=== PATIENT | male | born 1965 | race Caucasian/White ===

== ENCOUNTER 2017-10-27 10:26 | Day surgery (SDC) | payer BC ==
[2017-10-27] MEDS ORDERED: VANCOMYCIN/NS 1 gm 1 GM/250 ML BAG ONE (10:59)
== END 2017-10-27 12:30 | disposition home or self-care (01) ==
LOC: DS 10:26
PROVIDERS: ATTEND Urology
DX: N39.0 Urinary tract infection, site not specified (principal); R97.20 Elevated prostate specific antigen [PSA]
CPT/HCPCS: 96365; 96366; J3370

== ENCOUNTER 2021-01-23 05:48 | Day surgery (SDC) | payer BC ==
[2021-01-19 10:05] LABS: Absolute Lymphocytes (CBC) 1.8 K/uL (0.7-4.9); Basophils % 0.4 % (0-1.3); Hematocrit 43.3 % (39.6-49.0); Lymphocytes % 18.4 % (15.3-44.8); MPV 7.6 fL (7.6-11.3); RBC Red Blood Cell Count 4.68 M/uL (4.33-5.43)
[2021-01-19 10:13] LABS: BUN Blood Urea Nitrogen 23 mg/dL (7-18); Bicarbonate 29 mmol/L (21-32); Glucose Level 112 mg/dL (74-106); Potassium 4.1 mmol/L (3.5-5.1); Protime INR 1.04; Sodium Level 141 mmol/L (136-145)
--- NOTE | 2021-01-19 10:30 | RAD REPORT ---
EXAM DESCRIPTION: RAD - Chest Pa And Lat (2 Views) - 01/19/2021 10:08 am CLINICAL HISTORY: preop Chest pain. COMPARISON: No comparisons FINDINGS: The lungs are clear. The heart is normal in size. No displaced fractures. IMPRESSION: No acute or concerning finding suspected.
[2021-01-23] MEDS ORDERED: Ringers Lactate 1,000 ML IV ONE ×2 (06:23→08:49)
[2021-01-23] MEDS ORDERED: CEFAZOLIN/SWI 2gm 2 GM/20 ML SYR ONE (06:23)
[2021-01-23] MEDS ORDERED: propofoL 200 MG/20 ML VIAL IV ONE ×2 (06:29→08:38)
[2021-01-23] MEDS ORDERED: MIDAZOLAM HCL 2 MG/2 ML INJ ONE ×2 (06:29→08:38)
[2021-01-23] MEDS ORDERED: FENTANYL CITR 100 MCG/2 ML ONE ×2 (06:29→08:38)
[2021-01-23] MEDS ORDERED: ONDANSETRON 4 MG/2 ML VIAL ONE ×2 (06:30→08:38)
[2021-01-23] MEDS ORDERED: ROCURONIUM 50 MG/5 ML VIAL IV ONE ×2 (06:30→08:38)
[2021-01-23] MEDS ORDERED: dexAMETHasone 10 MG/ML VIAL ONE ×2 (06:30→08:38)
[2021-01-23] MEDS ORDERED: LIDOCAINE 2% MPF 5 ML VIAL ONE ×2 (06:30→08:38)
[2021-01-23] MEDS ORDERED: NS 0.9% VIAL 10 ML ONE (06:30)
[2021-01-23] MEDS ORDERED: LIDOCAINE 1% MPF 30 ML VIAL ONE ×2 (06:31→08:38)
[2021-01-23] MEDS ORDERED: ROPLVACAINE HCL 40 ML ONE (06:38)
[2021-01-23] MEDS ORDERED: CELECOXIB 100 MG CAPSULE ONE (07:08)
[2021-01-23] MEDS ORDERED: ACETAMINOPHEN 500 MG TAB ONE (07:08)
[2021-01-23] MEDS ORDERED: EPINEPHRINE/PF 1 MG/ML AMP ONE (07:14)
[2021-01-23] MEDS ORDERED: NS 0.9% VIAL 0 ML ONE (08:38)
[2021-01-23] MEDS ORDERED: EPHEDRINE SULF 50 MG/ML VIAL ONE (08:38)
--- NOTE | 2021-01-23 09:41 | P.BOP ---
Preoperative diagnosis: left rotator cuff tear, bicipital tenosynovitis, impingement syndrome Postoperative diagnosis: same Primary procedure: left shoulder arthroscopic rotator cuff repair Secondary procedure: left shoulder arthroscopic biceps tenotomy Other procedure(s): left shoulder arthroscopic subacromial decompression Estimated blood loss: 5 cc Specimen: none Findings: see dictation Anesthesia: General Complications: None Implants: 1- 5.5 mm arthrex corkscrew, 1 - 4.75 mm arthrex swivelock Fluids & blood products: per anesthesia record Transferred to: Recovery Room Condition: Good
--- NOTE | 2021-01-23 10:45 | RAD REPORT ---
EXAM DESCRIPTION: RAD - Shoulder 1 View - 01/23/2021 10:28 am CLINICAL HISTORY: rotator cuff repair COMPARISON: Shoulder Left Wo Cont dated 12/04/2020 FINDINGS: Postsurgical changes are present about the left shoulder. Mild soft tissue swelling is sof t tissue air is present. No unexpected postoperative finding.
[2021-01-23] MEDS ORDERED: HYDROCODONE/APAP 7.5/325 MG TAB ONE (11:25)
[2021-01-23 12:42] VITALS: BP 113/65; TEMP 97.3; O2SAT 94
--- NOTE | 2021-01-27 21:04 | OP ---
Date of Procedure: 01/23/2021 Surgeon: Blas Brown MD Postoperative Diagnoses: 1.Left shoulder rotator cuff tear. 2.Left shoulder bicipital tenosynovitis. 3.Left shoulder impingement syndrome. Postoperative Diagnoses: 1.Left shoulder rotator cuff tear. 2.Left shoulder bicipital tenosynovitis. 3.Left shoulder impingement syndrome. Procedures Performed: 1.Left shoulder arthroscopic rotator cuff repair. 2.Left shoulder arthroscopic biceps tenotomy. 3.Left shoulder arthroscopic subacromial decompression. Anesthesia: General endotracheal. Fluids: Per Anesthesia record. Estimated Blood Loss: 5 cc. Complications: None. Implants: 1.One 5.5 mm Arthrex Corkscrew. 2.One 4.75 mm Arthrex SwiveLock. Indication For Procedure: Jsoe Luis is a 55-year-old male, who presented to my clinic with signs, sympt oms, and MRI findings consistent with left shoulder rotator cuff tear. I discussed with the patient at length risks and benefits associated with operative and nonoperative treatment. He expressed unde rstanding and elected to proceed with operative treatment. Description Of Procedure: After informed consent was obtained, the patient was identified in the pre operative holding area. The left upper extremity was marked. The patient was then taken to the PACU , where he underwent an interscalene block. The left upper extremity performed by Anesthesia. He wa s then taken to the operating room, transferred to the operating table in supine fashion and placed u nder general endotracheal anesthesia. He was then placed in the beach chair position with the extrem ities well padded. The left upper extremity was then examined. The patient had full range of motion without instability noted. Next, the left upper extremity was prepped and draped in usual sterile f ashion. A time-out was initiated. The correct patient and procedure were confirmed and identified. The patient received his preoperative prophylactic antibiotics. Attention was first taken to the cr eation of the posterior portal. A spinal needle was introduced into the left glenohumeral joint and injected with 30 cc of normal saline to distend the capsule. A stab incision was made over the poste rior portal position using 11 blade and the arthroscope was brought in via the posterior portal posit ion. Under direct visualization, an anterior portal was created and cannula was placed. Diagnostic arthroscopy was performed. The patient was noted to have significant fraying of the biceps tendon an chor. The biceps tenotomy was then performed using meniscal biters. The patient was noted to have o verall pristine cartilage of the humeral head and glenoid rim. There was no instability noted of the anterior-posterior labrum without tearing. No loose bodies are found within the axillary pouch. Th e subscapularis was found to be intact and stable to probe. The arthroscope was then brought in to e valuate the supraspinatus footprint. There was significant fraying and there was a full-thickness te ar noted. A lateral portal was created and an obturators brought into the joint, which confirm the f ull-thickness nature of the tear. The undersurface of the supraspinatus tear was then debrided using arthroscopic shaver. The arthroscope was then brought into the subacromial space and subacromial bu rsectomy was performed. The anterior supraspinatus tear was then identified and debrided on the burs al aspect of it. A cannula was placed through the lateral portal. A 5.5 mm double loaded corkscrew anchor was then placed just lateral to the articular surface and the sutures were then passed through the rotator cuff tear in an anterior-posterior fashion and tied in a horizontal mattress type fashio n. The sutures were all brought together using a single lateral row and there was good overall reduc tion of the tear onto the footprint. Nylon suture was then used to reinforce the repair and was brou ght through the tissue posteriorly. Next, attention was taken to the subacromial decompression as th ere was some fraying noted of the coracoacromial ligament. The undersurface of the acromion was then debrided using arthroscopic ablator, radiofrequency ablator as well as an acromioplasty was performe d using arthroscopic alison. The arthroscopic instruments were then removed without complication. Wou nds were then irrigated thoroughly with normal saline. Subcutaneous tissue was approximated using 2- 0 Vicryl and portals were approximated using 3-0 Monocryl. Sterile dressings were applied. The pankaj ent was placed in a shoulder immobilizer, awakened, and transferred to PACU in stable condition. Postoperative Plan: He will be nonweightbearing on his left upper extremity and will begin physical therapy per medium rotator cuff repair protocol at 3 weeks postop. ABRAHAM/MODL Voice ID: [id number] Report ID: [id number]
== END 2021-01-23 11:55 | disposition home or self-care (01) ==
LOC: OR 05:48
PROVIDERS: ATTEND Orthopaedic Surgery Sports Medicine
PROC: 0RHK44Z Insertion of Internal Fixation Device into Left Shoulder Joint, Percutaneous Endoscopic Approach (ICD-10-PCS; 2021-01-23)
PROC: 0RNK4ZZ Release Left Shoulder Joint, Percutaneous Endoscopic Approach (ICD-10-PCS; 2021-01-23)
PROC: 0LQ24ZZ Repair Left Shoulder Tendon, Percutaneous Endoscopic Approach (ICD-10-PCS; principal; 2021-01-23 07:30)
DX: M75.102 Unspecified rotator cuff tear or rupture of left shoulder, not specified as traumatic (principal); M75.22 Bicipital tendinitis, left shoulder; M75.42 Impingement syndrome of left shoulder; Z20.822 Contact with and (suspected) exposure to COVID-19
CPT/HCPCS: 29827; 29826; 93005; 85025; 80048; 36415; 85610; 85730; 71046; 73020; U0002; J2704; J0171; J2250; J3010; J1100; J2795; J0690; J7120 ×2; J2405

== ENCOUNTER 2021-11-01 01:40 | Emergency (ER) | payer BC ==
--- OUTSIDE RECORDS SUMMARY | 2021-11-01 01:43 | XMS REPORT | Clinical Summary ---
:1965 Author Organization [facility] MD [facility] Address [address] [place] [address] Care Team Providers Name Role Phone MD Anthony Primary Care Provider Isaias Andrews MD Unavailable Allergies No known active allergies Medications No known medications Active Problems Problem Noted Date Adenocarcinoma of prostate 11/28/2017 Cancer Staging: Clinical stage from 10/27: Stage IIB (cT2a, cN0, cM0, PSA: 4.5, Grade Group: 2) - Signed by AYDIN Brooks on 05/22/2018 Pathologic stage from 04/05/2018: Stage I IB (pT2, pN0, cM0, PSA: 4.5, Grade Group: 2) - Signed by AYDIN Brooks on 05/22/2018 Overview: Added automatically from request for evelio gillis [id number] Surgical History Surgery Date Site/Laterality Comments CO 04/05/2018 Abdomen/N/A Procedure: ROBOT IC ASSISTED LAP,PROSTATECTOMY,RADICAL,W/NERV PROSTATECTOMY, RETROPUBIC E SPARE,INCL ROBOTIC RADICAL, IN CLUDING NERVE SPARING; Surgeo n: Mikey Cruz MD; Lo cation: MAIN OR; Servic e: UROLOGY CO LAP,PELVIC LYMPHADENECTOMY 04/05/2018 Bilateral Pr ocedure: ROBOTIC ASSISTED PELVIC LYMPHADEN ECTOMY; Surgeon: Mikey meade MD; Location: MAIN OR; Service: UROLOGY Medical History Medical History Date Comments Prostate cancer Dependence on continuous positive airway pressure ventilatio n Obstructive sleep apnea uses CPAP Family History Medical History Relation Name Comments Diabetes Brother -Genitourinary (Bladder, Kidney, Prostate, Father prostate Testicle) Diabetes Father -Gastrointestinal (Esophagus, Liver, Bile Duct, Maternal Grandmo ther pancreatic Stomach, Pancreas, Colon, Rectum, Anus Diabetes Mother Heart disease Mother Stroke Paternal Grandfather Diabetes Sister Coronary artery disease Neg Hx Relation Name Status Comments Brother Father Maternal Grandmother Mother Paternal Grandfather Sister Social History Tobacco Use Types Packs/Day Years Used Date Never Smoker Smokeless Tobacco: Never Used Alcohol Use Standard Drinks/Week Comments No 0 (1 standard drink = 0.6 oz pure alcoho l) Sex Assigned at Date Recorded Not on file Job Start Date Occupation Industry Not on file Not on file Not on file Obstetrics History Last Filed Vital Signs Not on file Plan of Treatment Health Maintenance Due Date Last Done Comments COVID-19 Vaccination (1) 02/12/1968 Results Not on fileafter 11/01/2020 Insurance Payer Benefit Plan / Subscriber ID Effective Dates Phone Addre ss Type Group [place] POS [id number] 2018-Present [address] [place] [address] Advance Directives Code Status Date Activated Date Inactivated Comments Full Code 04/05/2018 3:37 PM 04/06/2018 8:37 PM Full Code 04/05/2018 11:32 AM 04/05/2018 3:37 PM Care Teams Rolled [employer] 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
--- OUTSIDE RECORDS SUMMARY | 2021-11-01 01:44 | XMS REPORT | Continuity of Care Document ---
:1965 Author Organization [facility] t Address [address] [place] [address] Care Team Providers Name Role Phone PISTERS Primary Care Physician Unavailable Agus BEY Attending Clinician AGUS Attending Clinician Unavailable Doctor Unassigned, Name Attending Clinician Unavailable Provider, Db Urgent [facility] Attending Clinician Unavailable PISTERS Attending Clinician Unavailable Payers Payer Name Policy Type Policy Number Effective Date Expiration Date S ource [place] POS [id number] 2018 00:00:00 Problems Condition Condition Condition Status Onset Resolution Last Treating Co mments Source Name Details Category Date Date Treatment Clinician Date Adenocarci Adenocarci Disease Active Overview : noma of noma of 23 Jonh Vasquez so prostate prostate 00:00: g of this n 00 note might be different from the original. Added automatic ally from request for surgery [id number] No known No known Disease Unive rs active active ity of problems problems [facility] Allergies, Adverse Reactions, Alerts Allergy Allergy Status Severity Reaction(s) Onset Inactive Treating Comm ents Source Name Type Date Date Clinician NO KNOWN Drug Active Univers ALLERGIE Class ity of S [facility] Family History Family Member Diagnosis Comments Start Date Stop Date Source Natural sister Diabetes MD Ozzy albert Family member Coronary artery And timothy disease Natural brother Diabetes MD Jain on Natural father -Genitourinary (Bladder, Kidney, Prostate, Testicle) Natural father Diabetes MD Ozzy albert Maternal grandmother -Gastrointestinal MD Mcallister (Esophagus, Liver, Bile Duct, Stomach, Pancreas, Colon, Rectum, Anus Natural mother Diabetes MD Ozzy albert Natural mother Heart disease MD Everardo black Paternal grandfather Stroke MD Zak regan Social History Social Habit Start Date Stop Date Quantity Comments Source Exposure to Not sure University of SARS-CoV-2 [facility] (event) Branch Alcohol intake 2019-08-21 2019-08-21 Current MD Ozzy albert 00:00:00 00:00:00 non-drinker of alcohol (finding) Tobacco use and 2017-11-28 2017-11-28 Smokeless tobacco MD Mcallisetr exposure 00:00:00 00:00:00 non-user Sex Ass[birth year] At [birth year] MD Jain on 00:00:00 00:00:00 Smoking Status Start Date Stop Date Source [facility] Never smoked tobacco MD Mcallister Medications Ordered Filled Start Stop Current Ordering Indication Dosage Frequency Signature Comments Components Source Medication Medication Date Date Medication? Clinician (SIG) Name Name [facility] Yes by [employer] s E IM 1-08 Intramuscu ity of 15:38: lar route. [address] TESTOSTERON Yes by Univer s E IM 1-08 Intramuscu ity of 15:38: lar route. [address] TESTOSTERON Yes by Univer s E IM 1-08 Intramuscu ity of 15:38: lar route. [address] benzonatate Yes [id number] 200mg Take 2 Univers 100 mg 1-08 capsules ity of capsule 00:00: by mouth [place] [id number] every 8 Medical (eight) Branch hours as needed for Cough. benzonatate Yes [id number] 200mg Take 2 Univers 100 mg 1-08 capsules ity of capsule 00:00: by mouth [place] [address] every 8 Medical (eight) Branch hours as needed for Cough. benzonatate Yes [id number] 200mg Take 2 Univers 100 mg 1-08 capsules ity of capsule 00:00: by mouth [place] [address] every 8 Medical (eight) Branch hours as needed for Cough. amoxicillin Yes [id number] 1{tbl} Take 1 Univers -clavulanat 1-08 tablet by ity of e 00:00: mouth 2 [place] (AUGMENTIN) 00 (two) Medical 875-125 mg times Branch per tablet daily. amoxicillin 2021- Yes [id number] 1{tbl} Take 1 Univers -clavulanat 08-15 tablet by it y of e 00:00: 05:59 mouth 2 [place] (AUGMENTIN) 00 :00 (two) Medical 875-125 mg times Branch per tablet daily for 7 days. amoxicillin 2021- Yes [id number] 1{tbl} Take 1 Univers -clavulanat 08-15 tablet by it y of e 00:00: 05:59 mouth 2 [place] (AUGMENTIN) 00 :00 (two) Medical 875-125 mg times Branch per tablet daily for 7 days. benzonatate 2021- No [id number] 200mg Take 2 Univers 100 mg 08-15 capsules ity of capsule 00:00: 00:00 by mouth [place] 00 :00 every 8 Medical (eight) Branch hours as needed for Cough. amoxicillin 2021- No [id number] 1{tbl} Take 1 Univers -clavulanat 08-15 tablet by it y of e 00:00: 00:00 mouth 2 [place] (AUGMENTIN) 00 :00 (two) Medical 875-125 mg times Branch per tablet daily for 7 days. Vital Signs Vital Name Observation Time Observation Value Comments Source Systolic blood 2021-08-15 21:37:00 134 mm[Hg] Univer [facility] Diastolic blood 2021-08-15 21:37:00 81 mm[Hg] Unive [facility] Heart rate 2021-08-15 21:37:00 65 /min [facility] Body temperature 2021-08-15 21:37:00 36.67 Danelle [facility] Respiratory rate 2021-08-15 21:37:00 16 /min [facility] Body height 2021-08-15 21:37:00 160 cm [facility] Body weight 2021-08-15 21:37:00 86.637 kg [facility] BMI 2021-08-15 21:37:00 33.83 kg/m2 [facility] Oxygen saturation in 2021-08-15 21:37:00 98 /min University of Arterial blood by [facility] Pulse oximetry Branch Procedures Procedure Date / Time Performed Performing Clinician [facility] e CONSENT/REFUSAL FOR 2021-08-15 21:32:13 [facility] Plan of Care Planned Activity Planned Date Details Comments Source Future Scheduled Test 1968-02-12 00:00:00 COVID-19 Vaccination MD Mcallister (1) [code = COVID-19 Vaccination (1)] Encounters Start End Encounter Admission Attending Care Care Encounter Source Date/Time Date/Time Type Type Clinicians Facility Department ID 2021-08-15 2021-08-15 [facility] [id number] Univers 15:40:00 16:03:42 Care Adán HEALTH [id number] it y of [place] [id number] Sundar as HAKAN?BLEA [id number] [address] MEDICAL OFFICE [facility] 2021-08-15 2021-08-15 Outpatient R AGUS [facility] [id number] Univers 15:40:00 16:03:[address] [facility] 2021-08-15 2021-08-15 Orders Doctor CHUCK [id number] Univers 00:00:00 00:00:00 Only Unassigned, JESSIE [id number] ity of [place] [facility] [id number] Sundar as [id number] [place] [address] Branch 2021-08-15 2021-08-15 [facility] [id number] Univers 00:00:00 00:00:00 (Out) Ang Db HEALTH [id number] it y of Urgent Care [place] [id number] [place] HAKAN?BLEA [id number] [address] OFFICE [facility] 2021-08-15 2021-08-15 Telephone Agus [facility] [id number] Univers 00:00:00 00:00:00 Adán HEALTH [id number] it y of [place] [id number] Sundar as HAKAN?BLEA [id number] [address] OFFICE [facility] 2020-09-15 2020-09-15 Outpatient JM MARTINEZ MDA MDA [id number] 11:43:03 11:43:03 ERIC albert 2020-09-08 2020-09-08 Outpatient JM MARTINEZ MDA MDA [id number] 11:24:12 11:38:57 ERIC albert Results This patient has no known results.
[2021-11-01] MEDS ORDERED: IBUPROFEN 400 MG TAB ONE ×2 (02:48→02:50)
--- NOTE | 2021-11-01 04:20 | EDPHYS ---
Physician Documentation [facility] Name: Jose Luis Baird Age: 56 yrs Sex: Male : 1965 Arrival Date: 11/01/2021 Time: 01:44 Bed 6 Private MD: ED Physician Ollie Lua HPI: 11/01 02:16 This 56 yrs old Male presents to ER via Ambulatory with complaints of Hip Pain. mh7 02:16 The patient or guardian reports pain. that occurred at an unknown site, sustained from mh7 unknown reason, There is no obvious deformity, The patient is able to self ambulate. The patient is able to bear their full body weight. There is no radiation of the patient's discomfort. The patient was discovered weeksafter the incident. The complaints affect the bilateral hips. Onset: The symptoms/episode began/occurred 4 week(s) ago. 02:16 Modifying factors: The symptoms are alleviated by nothing, the symptoms are aggravated mh7 by weight bearing. 02:16 Associated signs and symptoms: Pertinent negatives: abdominal pain, altered mental mh7 status, anorexia, chest pain, diarrhea, dizziness, dysuria, fever, headache, incontinence, nausea, shortness of breath, vomiting, weakness. Severity of symptoms: At their worst the symptoms were moderate, 14 day(s) ago, in the emergency department the symptoms are unchanged. The patient has experienced similar episodes in the past, multiple times. Historical: - Allergies: 02:00 No Known Allergies; lonnie - Home Meds: 02:00 testosterone shot [Active]; lonnie - PSHx: 02:00 rotator cuff x 2; prostatectomy; lonnie - Immunization history:: Adult Immunizations up to date, Client reports receiving the 2nd dose of the Covid vaccine. - Social history:: Smoking status: Patient denies any tobacco usage or history of. ROS: 02:16 Constitutional: Negative for fever, chills, and weight loss, Eyes: Negative for injury, mh7 pain, redness, and discharge, ENT: Negative for injury, pain, and discharge, Neck: Negative for injury, pain, and swelling, Cardiovascular: Negative for chest pain, palpitations, and edema, Respiratory: Negative for shortness of breath, cough, wheezing, and pleuritic chest pain, Abdomen/GI: Negative for abdominal pain, nausea, vomiting, diarrhea, and constipation, Back: Negative for injury and pain, : Negative for injury, bleeding, discharge, and swelling, Skin: Negative for injury, rash, and discoloration, Neuro: Negative for headache, weakness, numbness, tingling, and seizure, Psych: Negative for depression, anxiety, suicide ideation, homicidal ideation, and hallucinations, Allergy/Immunology: Negative for hives, rash, and allergies, Endocrine: Negative for neck swelling, polydipsia, polyuria, polyphagia, and marked weight changes, Hematologic/Lymphatic: Negative for swollen nodes, abnormal bleeding, and unusual bruising. Exam: 02:16 Constitutional: This is a well developed, well nourished patient who is awake, alert, mh7 and in no acute distress. Head/Face: Normocephalic, atraumatic. Eyes: Pupils equal round and reactive to light, extra-ocular motions intact. Lids and lashes normal. Conjunctiva and sclera are non-icteric and not injected. Cornea within normal limits. Periorbital areas with no swelling, redness, or edema. Neck: Trachea midline, no thyromegaly or masses palpated, and no cervical lymphadenopathy. Supple, full range of motion without nuchal rigidity, or vertebral point tenderness. No Meningismus. Chest/axilla: Normal chest wall appearance and motion. Nontender with no deformity. No lesions are appreciated. Cardiovascular: Regular rate and rhythm with a normal S1 and S2. No gallops, murmurs, or rubs. Normal PMI, no JVD. No pulse deficits. Respiratory: Lungs have equal breath sounds bilaterally, clear to auscultation and percussion. No rales, rhonchi or wheezes noted. No increased work of breathing, no retractions or nasal flaring. Abdomen/GI: Soft, non-tender, with normal bowel sounds. No distension or tympany. No guarding or rebound. No evidence of tenderness throughout. Back: No spinal tenderness. No costovertebral tenderness. Full range of motion. Skin: Warm, dry with normal turgor. Normal color with no rashes, no lesions, and no evidence of cellulitis. 02:16 Neuro: Awake and alert, GCS 15, oriented to person, place, time, and situation. Cranial nerves II-XII grossly intact. Motor strength 5/5 in all extremities. Sensory grossly intact. Cerebellar exam normal. Normal gait. Psych: Awake, alert, with orientation to person, place and time. Behavior, mood, and affect are within normal limits. 02:16 Musculoskeletal/extremity: Extremities: noted in the bilateral hips: tenderness, mild, ROM: intact in all extremities, Circulation is intact in all extremities. Sensation intact. Compartment Syndrome exam of affected extremity: is normal. no numbness, no tingling, no sensation deficit, no palor, no weak pulses, Joints: the left hip and right hip displays tenderness, mild, Weight bearing: able to fully bear weight, without difficulty, Tendon exam: specific tendon testing normal through active and passive range of motion DVT Exam: no pain, no swelling, no tenderness, negative Homans' sign noted on exam, no appreciated bluish discoloration, no erythema, no increased warmth, Calves: are non-tender, have equal circumference. Vital Signs: 01:58 BP 136 / 105; Pulse 71; Resp 18; Temp 98.5; Pulse Ox 99% on R/A; Weight 86.18 kg; lonnie Height 5 ft. 2 in. (157.48 cm); Pain 8/10; 03:43 BP 132 / 93; Pulse 80; Resp 18; Temp 98.5; Pulse Ox 99% on R/A; Pain 6/10; lonnie 04:34 BP 132 / 93; Pulse 63; Resp 18; Temp 98.6; Pulse Ox 100% on R/A; Pain 4/10; lonnie 01:58 Body Mass Index 34.75 (86.18 kg, 157.48 cm) lonnie MDM: 02:16 Differential diagnosis: bursitis, arthritis, strain. Data reviewed: vital signs, nurses mh7 notes. Data interpreted: Pulse oximetry: on room air is 99 %. Interpretation: normal. Counseling: I had a detailed discussion with the patient and/or guardian regarding: the historical points, exam findings, and any diagnostic results supporting the discharge/admit diagnosis, the presence of at least one elevated blood pressure reading (>120/80) during this emergency department visit, the need for outpatient follow up, a orthopedic surgeon, to return to the emergency department if symptoms worsen or persist or if there are any questions or concerns that arise at home. Response to treatment: the patient's symptoms have markedly improved after treatment. Refusal of service: The patient/guardian displays adequate decision making capability and despite a detailed discussion of alternatives, benefits, risks, and consequences refuses: CT Scan, all X-rays. ED course: Patient states that he came to get an MRI. Declined x ray or CT scan.. 04:[address] [facility] Administered Medications: 02:47 Drug: Ibuprofen 800 mg Route: PO; lonnie Disposition Summary: 11/01/21 04:19 Discharge Ordered Location: Home [facility] Problem: chronic [facility] Symptoms: have improved [facility] Condition: Stable [facility] Diagnosis - Pain in hip - Bilateral, chronic [facility] Followup: [facility] - With: Private Physician - When: 1 - 2 days - Reason: Worsening of condition, Recheck today's complaints, Continuance of care, Re-evaluation by your physician Followup: [facility] - With: Joe Hoffman MD - When: 1 - 2 days - Reason: Worsening of condition, Recheck today's complaints Discharge Instructions: - Discharge Summary Sheet [facility] - Hip Pain [facility] Forms: - Medication Reconciliation Form [facility] - Thank You Letter [facility] - Antibiotic Education [facility] - Prescription Opioid Use [facility] Prescriptions: - Ibuprofen 800 mg Oral Tablet - take 1 tablet by ORAL route every 8 hours As needed take with food; 15 tablet; [facility] Refills: 0, Product Selection Permitted - Cyclobenzaprine 10 mg Oral Tablet - take 1 tablet by ORAL route every 8 hours As needed; 15 tablet; Refills: 0, [facility] Product Selection Permitted Signatures: Ollie Lua MD MD [facility] Lidia Sifuentes RN RN lonnie Corrections: (The following items were deleted from the chart) 02:02 02:00 PSHx: prostectomy; lonnie lonnie
--- NOTE | 2021-11-01 04:20 | ER ---
Nurse's Notes [facility] Name: Jose Luis Baird Age: 56 yrs Sex: Male : 1965 Arrival Date: 11/01/2021 Time: 01:44 Bed 6 Private MD: Diagnosis: Pain in hip-Bilateral, chronic Presentation: 11/01 01:58 Chief complaint: Patient states: bilateral hip pain-chronic. Coronavirus screen: lonnie Vaccine status: Patient reports receiving the 2nd dose of the covid vaccine. Ebola Screen: Patient negative for fever greater than or equal to 101.5 degrees Fahrenheit, and additional compatible Ebola Virus Disease symptoms Patient denies exposure to infectious person. Patient denies travel to an Ebola-affected area in the 21 days before illness onset. Initial Sepsis Screen: Does the patient meet any 2 criteria? No. Patient's initial sepsis screen is negative. Does the patient have a suspected source of infection? No. Patient's initial sepsis screen is negative. Risk Assessment: Do you want to hurt yourself or someone else? Patient reports no desire to harm self or others. Onset of symptoms. 01:58 Method Of Arrival: Ambulatory lonnie 01:58 Acuity: SANDRA 4 lonnie Triage Assessment: 02:00 General: Appears uncomfortable, Behavior is calm, cooperative. Pain: Complains of pain lonnie in bilateral hips. Historical: - Allergies: 02:00 No Known Allergies; lonnie - Home Meds: 02:00 testosterone shot [Active]; lonnie - PSHx: 02:00 rotator cuff x 2; prostatectomy; lonnie - Immunization history:: Adult Immunizations up to date, Client reports receiving the 2nd dose of the Covid vaccine. - Social history:: Smoking status: Patient denies any tobacco usage or history of. Screenin:03 Abuse screen: Denies threats or abuse. Denies injuries from another. Nutritional lonnie screening: No deficits noted. Tuberculosis screening: No symptoms or risk factors identified. Fall Risk None identified. Assessment: 02:03 Reassessment: No changes from previously documented assessment. 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 He reports that "it's been going on, but it's getting unbearable". Vital Signs: 01:58 BP 136 / 105; Pulse 71; Resp 18; Temp 98.5; Pulse Ox 99% on R/A; Weight 86.18 kg; lonnie Height 5 ft. 2 in. (157.48 cm); Pain 8/10; 03:43 BP 132 / 93; Pulse 80; Resp 18; Temp 98.5; Pulse Ox 99% on R/A; Pain 6/10; lonnie 04:34 BP 132 / 93; Pulse 63; Resp 18; Temp 98.6; Pulse Ox 100% on R/A; Pain 4/10; lonnie 01:58 Body Mass Index 34.75 (86.18 kg, 157.48 cm) lonnie ED Course: 01:44 Patient arrived in ED. ja2 01:58 Lidia Sifuentes, RN is Primary Nurse. lonnie 01:58 Ollie Lua MD is Attending Physician. 7 02:00 Triage completed. lonnie 02:00 Arm band placed on Patient pt placed in room on arrival. lonnie 02:03 Bed in low position. Call light in reach. Adult w/ patient. lonnie 02:03 No provider procedures requiring assistance completed. lonnie 04:18 Joe Hoffman MD is Referral Physician. [facility] 04:36 Patient did not have IV access during this emergency room visit. lonnie Administered Medications: 02:47 Drug: Ibuprofen 800 mg Route: PO; lonnie Outcome: 02:05 Condition: stable lonnie 04:19 Discharge ordered by . 7 04:35 Discharged to home ambulatory, with family. lonnie 04:35 Discharge instructions given to Instructed on discharge instructions, follow up and referral plans. medication usage, Demonstrated understanding of instructions, follow-up care, medications, Prescriptions given X 2. 04:36 Patient left the ED. lonnie Signatures: Ollie Lua MD MD [facility] Myrtle Esparza [facility] Lidia Sifuentes, TREY RN lonnie Corrections: (The following items were deleted from the chart) 02:02 02:00 PSHx: prostectomy; lonnie lonnie
[2021-11-01 04:53] VITALS: BP 132/93
[2021-11-01 04:54] VITALS: TEMP 98.6; O2SAT 100
== END 2021-11-01 04:36 | disposition home or self-care (01) ==
LOC: ER 01:40
DX: M25.552 Pain in left hip (principal); M25.551 Pain in right hip; G89.29 Other chronic pain
CPT/HCPCS: 99283